=== PATIENT | female | born 1995 | race Caucasian/White ===

== ENCOUNTER 2019-02-02 19:52 | Emergency (ER) | payer OTHER, MEDICAID, SELFPAY ==
[2019-02-02 20:01] VITALS: BP 133/84; PULSE 72; RESP 18; TEMP 36.7; O2SAT 100; BMI 20.7
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
[2019-02-02 20:12] LABS: Microscopic, Urine URINE MICROSCOPIC (MICROSCOPIC)
[2019-02-02 20:17] LABS: Appearance,Urine CLEAR (Clear); Bilirubin,Urine Negative (Negative); Blood, Urine Negative (Negative); Color,Urine YELLOW (Yellow); Glucose,Urine (UA) Negative (Negative); Ketones,Urine Negative (Negative); Leukocyte Esterase,Urine TRACE (Negative); Nitrate,Urine Negative (Negative); Protein,Urine Negative (Negative); Urobilinogen,Urine 0.2 EU/dl (0.2)
[2019-02-02 20:18] LABS: Urine Pregnancy, HCG Qual. Negative (Negative)
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
[2019-02-02 20:21] LABS: WBC,Urine Occasional #/hpf (0-3)
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
[2019-02-02 21:40] VITALS: BP 123/78; PULSE 74; RESP 16; TEMP 36.6; O2SAT 100
== END 2019-02-02 21:41 | disposition home or self-care (01) ==
PROVIDERS: Emergency Medicine; Emergency Provider Emergency Medicine; PCP Family Medicine
DX: S16.1XXA Strain of muscle, fascia and tendon at neck level, initial encounter (principal); R51 Headache; V43.62XA Car passenger injured in collision with other type car in traffic accident, initial encounter; Y92.414 Local residential or business street as the place of occurrence of the external cause
CPT/HCPCS: 70450; 71045; 72125; 81001; 81025; 99282